=== PATIENT | male | born 1960 | race Two or more races ===

== ENCOUNTER 2017-08-13 13:51 | Emergency (ER) | payer MEDICAID ==
[~2017-08-13] VITALS: Ht 165.1 cm; Wt 66.2 kg
[~2017-08-13 13:51] MED LIST: LEVO500T75 PO
--- NOTE | 2017-08-13 14:00 | NUR ---
PT WAS BB FROM HOME, PT IS COMPLAINING OF ABDOMINAL PAIN X 2 MONTHS. PT SAID HE WAS SEEN BY HIS PMD FOR THIS PROB ON 08/08 AND HE WAS REFERRED TO A SPECIALIST, BUT HE'S STILL WAITING FOR THE REFFERAL FROM HIS PMD. PAIN IS GETTING WORSE. PT DENIES N/V/D. NAD VSS RR EVEN AND UNLABORED. SKIN IS WARM AND NON DIAPHORETIC. PENDING ER MD FELIX
[2017-08-13 15:07] LABS: BASOPHILS # (AUTO) 0.3 /CMM (0.0-0.2); BASOPHILS % (AUTO) 4.4 % (0.0-2.0); EOSINOPHILS % (AUTO) 7.5 % (0.0-6.0); HEMATOCRIT 42 % (39-51); HEMOGLOBIN 14.7 g/dL (13.5-17.5); LYMPHOCYTES # (AUTO) 1.6 /CMM (0.8-4.8); LYMPHOCYTES % (AUTO) 20.7 % (20.0-44.0); MEAN CORPUSCULAR HGB CONC 35 g/dl (31.0-36.0); MEAN CORPUSCULAR VOLUME 89 fL (80-96); MONOCYTES # (AUTO) 0.5 /CMM (0.1-1.30); MONOCYTES % (AUTO) 6.5 % (2.0-12.0); NEUTROPHILS # (AUTO) 4.6 /CMM (1.8-8.9); NEUTROPHILS % (AUTO) 60.9 % (43.0-81.0); PLATELET COUNT (AUTO) 318 /CMM (150-450); RDW COEFFICIENT OF VARIATION 12.1 (11.5-15.0); RED BLOOD CELL COUNT(AUTO) 4.68 MIL/uL (4.5-6.0); WHITE BLOOD COUNT (AUTO) 7.6 K/uL (4.3-11.0)
[2017-08-13 15:21] LABS: CALCIUM, SERUM 9.5 mg/dL (8.5-10.1); POTASSIUM 3.6 mmol/L (3.5-5.1)
[2017-08-13 15:23] LABS: ALBUMIN 4.1 g/dL (3.4-5.0); BILIRUBIN,DIRECT 0.1 mg/dL (0.0-0.2); BILIRUBIN,TOTAL 0.5 mg/dL (0.2-1.0); TOTAL PROTEIN, SERUM 7.4 g/dL (6.4-8.2)
[2017-08-13 15:53] VITALS: BP 149/86
--- NOTE | 2017-08-13 15:53 | NUR ---
IV removed. Catheter intact and site benign. Pressure and 4x4 applied to site. No bleeding noted. Patient discharged to home in stable condition. Written and verbal after care instructions given. Patient verbalizes understanding of instruction.
== END 2017-08-13 15:53 | disposition home or self-care (01) ==
LOC: ER 13:52
DX: R10.13 Epigastric pain (principal); G89.29 Other chronic pain; Z88.6 Allergy status to analgesic agent; F17.210 Nicotine dependence, cigarettes, uncomplicated; F10.10 Alcohol abuse, uncomplicated; Y90.0 Blood alcohol level of less than 20 mg/100 ml; Z90.49 Acquired absence of other specified parts of digestive tract
CPT/HCPCS: 36415; 80048; 80076; 83690; 85025; 99284; A4606; G0480; Z7610

== ENCOUNTER 2017-08-17 17:09 | Emergency (ER) | payer MEDICAID ==
[~2017-08-17] VITALS: Ht 167.6 cm; Wt 65.8 kg
[2017-08-17 17:19] VITALS: BP 156/78
[2017-08-17] MEDS ORDERED: MAG HYDROX/AL HYDROX/SIMETH 30 ML UDC ONE (17:29)
[2017-08-17] MEDS ORDERED: LIDOCAINE VISCOUS 2% UD 15 ML UDC ONE (17:29)
[2017-08-17] MEDS ORDERED: MAG HYDROX/AL HYDROX/SIMETH 30 ML UDC PO ONE (17:30)
[2017-08-17] MEDS ORDERED: LIDOCAINE VISCOUS 2% UD 15 ML UDC MM ONE (17:30)
== END 2017-08-17 18:07 | disposition home or self-care (01) ==
LOC: ER 17:12
DX: R10.13 Epigastric pain (principal); K21.9 Gastro-esophageal reflux disease without esophagitis; F17.210 Nicotine dependence, cigarettes, uncomplicated; F10.10 Alcohol abuse, uncomplicated; Y90.9 Presence of alcohol in blood, level not specified; Z88.6 Allergy status to analgesic agent; Z88.8 Allergy status to other drugs, medicaments and biological substances
CPT/HCPCS: 99283; A4606; Z7610

== ENCOUNTER 2019-03-13 02:46 | Emergency (ER) | payer MEDICAID ==
[~2019-03-13] VITALS: Ht 167.6 cm; Wt 72.1 kg
[2019-03-13] MEDS ORDERED: Magnesium 1GM/D5W 100ML PREMIX 200 ML IV ONE (02:50)
--- NOTE | 2019-03-13 02:50 | NUR ---
PT ARRIVED TO ER BIB RA TO BED 5 C/O SOB. PT'S FAMILY MEMBER STATES THAT HE HAS SOB SINCE YESTERDAY 7PM. PT ARRIVED TO ER W/ NASAL FLARING, PALE, AND IN RESPIRATORY DISTRESS. AAOX4. MD AT BEDSIDE, RT AT BEDSIDE, AND NURSES AT BEDSIDE.
[2019-03-13] MEDS ORDERED: methylPREDNISolone SOD SUCC 125 MG/2ML VIAL ONE (02:52)
[2019-03-13] MEDS ORDERED: IPRATROPIUM NEB FS 0.5 MG/2.5 ML AMPUL.NEB ONE (02:53)
[2019-03-13] MEDS ORDERED: ALBUTEROL FS 2.5 MG/3 ML VIAL.NEB ONE (02:53)
--- NOTE | 2019-03-13 02:53 | NUR ---
BLOOD DRAWN AND SENT TO LAB.
--- NOTE | 2019-03-13 02:59 | NUR ---
PATIENT PLACED ON BIPAP, SETTINGS 500 TIDAL VOLUM, 15/5 IPAP/EPAP, FIO2 AT 40%. PATIENT ALSO RECEIVING ALBUTEROL AND ATROVENT BREATHING TREATMENT.
[2019-03-13] MEDS ORDERED: IPRATROPIUM NEB FS 0.5 MG/2.5 ML AMPUL.NEB NEB ONE (03:00)
[2019-03-13] MEDS ORDERED: ALBUTEROL FS 2.5 MG/3 ML VIAL.NEB CONTNEB ONE (03:00)
[2019-03-13] MEDS ORDERED: methylPREDNISolone SOD SUCC 125 MG/2ML VIAL IV ONE (03:00)
[2019-03-13] MEDS ORDERED: NITROGLYCERIN 0.4 MG/TAB BOTTLE ONE (03:01)
[2019-03-13 03:03] LABS: BASOPHILS # (AUTO) 0.1 /CMM (0.0-0.2); BASOPHILS % (AUTO) 1.3 % (0.0-2.0); EOSINOPHILS % (AUTO) 14.7 % (0.0-6.0); HEMATOCRIT 49 % (39-51); HEMOGLOBIN 16.1 g/dL (13.5-17.5); LYMPHOCYTES # (AUTO) 4.2 /CMM (0.8-4.8); LYMPHOCYTES % (AUTO) 40.3 % (20.0-44.0); MEAN CORPUSCULAR HGB CONC 33 g/dl (31.0-36.0); MEAN CORPUSCULAR VOLUME 94 fL (80-96); MONOCYTES # (AUTO) 0.9 /CMM (0.1-1.30); MONOCYTES % (AUTO) 8.7 % (2.0-12.0); NEUTROPHILS # (AUTO) 3.6 /CMM (1.8-8.9); PLATELET COUNT (AUTO) 313 /CMM (150-450); RED BLOOD CELL COUNT(AUTO) 5.22 MIL/uL (4.5-6.0); WHITE BLOOD COUNT (AUTO) 10.3 K/uL (4.3-11.0)
[2019-03-13 03:09] LABS: CALCIUM, SERUM 8.9 mg/dL (8.5-10.1); CARBON DIOXIDE 30 mmol/L (21-32); CHLORIDE 106 mmol/L (98-107); CREATININE 1.4 mg/dL (0.6-1.3); GLUCOSE 168 mg/dL (74-106); POTASSIUM 4.3 mmol/L (3.5-5.1); SODIUM SERUM 144 mmol/L (136-145); UREA NITROGEN, BLOOD 21 mg/dL (7-18)
--- NOTE | 2019-03-13 03:15 | NUR ---
FLU SWAB SAMPLE TAKEN TO LAB.
--- NOTE | 2019-03-13 03:15 | NUR ---
XRAY AT BEDSIDE
[2019-03-13 03:21] LABS: ALANINE AMINOTRANSFERASE 27 U/L (12-78); ALBUMIN 4.3 g/dL (3.4-5.0); ALKALINE PHOSPHATASE 93 U/L (46-116); ASPARTATE AMINOTRANSFERASE 21 U/L (15-37); B-TYPE NATRIURETIC PEPTIDE 32 PG/ML (0-125); BILIRUBIN,DIRECT 0.1 mg/dL (0.0-0.2); BILIRUBIN,TOTAL 0.3 mg/dL (0.2-1.0)
[2019-03-13] MEDS ORDERED: NITROGLYCERIN 0.4 MG/TAB BOTTLE SL ONE (03:30)
[2019-03-13 04:01] LABS: ABG BASE EXCESS -2.3 mmol/L; ABG OXYGEN SATURATION 98.7 % (92.0-98.5); ABG PCO2 53.3 mmHg (35.0-45.0); ABG PH 7.291 (7.350-7.450); ABG PO2 207.3 mmHg (75.0-100.0); AaDO2 16.6 mmHg; COHb 0.6 % (0.5-1.5); MetHb 0.5 % (0.0-1.5); O2Hb 97.6 % (94.0-97.0); SITE, ABG Right Radial
--- NOTE | 2019-03-13 04:06 | NUR ---
MD AT BEDSIDE FOR RE-EVALUATION. RT AT BEDSIDE. PATIENT PLACED ON 3L OF NASAL CANNULA. REMOVED FROM BIPAP
--- NOTE | 2019-03-13 04:07 | NUR ---
RT NOTE POST ABG, PER MD CARDOZA, PT TAKEN OFF BIPAP PLACED ON 3L NC. MD CARDOZA AND RN BEDSIDE. NO SOB NOTED. Addendum: 03/13/19 at 0431 by LOLI LLANOS RT BIPAP BEDSIDE.
--- NOTE | 2019-03-13 04:56 | NUR ---
PATIENT REMOVED OFF 3L OF N/C. PLACED ON ROOM AIR PER MD'S ORDER.
[2019-03-13 05:31] VITALS: BP 125/75
== END 2019-03-13 05:32 | disposition home or self-care (01) ==
LOC: ER 02:47
DX: J45.901 Unspecified asthma with (acute) exacerbation (principal); R00.0 Tachycardia, unspecified; K21.9 Gastro-esophageal reflux disease without esophagitis; F10.10 Alcohol abuse, uncomplicated; F17.210 Nicotine dependence, cigarettes, uncomplicated; Y90.9 Presence of alcohol in blood, level not specified; Z79.899 Other long term (current) drug therapy; Z90.49 Acquired absence of other specified parts of digestive tract; Z88.6 Allergy status to analgesic agent; Z88.8 Allergy status to other drugs, medicaments and biological substances
CPT/HCPCS: 36415; 36600 ×2; 71045; 80048; 80076; 82803; 83605; 83880; 84484; 85025; 87040; 87081; 87804 ×2; 93005; 94644; 96365; 96375; 99285; J2930